=== PATIENT | female | born 1960 | race Caucasian/White ===

== ENCOUNTER → 2017-10-25 00:50 | Outpatient (CLI) | payer OTHER, SELFPAY ==
--- NOTE | 2017-10-25 08:01 | DI.REPORT_ITS ---
SYMPTOM/DIAGNOSIS: F/U THYROID NODULE, E04.1 THYROID ULTRASOUND: The right thyroid lobe measures 4.9 by 2.7 by 2.9 cm. and contains a 4.6 by 2.5 by 2.5 solid nodule with color flow. There is a 9 by 4 by 7 mm. nodule in the isthmus. The left thyroid measures 3.8 by 1.0 by 1.3 cm. In the upper pole, there is a 6 by 3 by 4 mm. nodule. In the mid pole, there is a 7 by 4 by 9 mm. nodule and a 5 by 3 by 4 mm. nodule. SUMMARY: A multi nodular thyroid gland is demonstrated. There is a 4.6 by 2.5 by 2.5 cm. nodule involving the right thyroid lobe as described above. This patient has apparently had two biopsies of this nodule, both of which revealed no evidence of malignancy, this nodule little changed by ultrasound when compared with the previous examination of 09/14/16.
== END ==
PROVIDERS: PCP Family Medicine; Visit Provider Otolaryngology
DX: E04.1 Nontoxic single thyroid nodule (principal)
CPT/HCPCS: 76536

== ENCOUNTER 2017-11-22 12:49 | Outpatient (REF) | payer OTHER, SELFPAY ==
--- NOTE | 2017-11-22 11:00 | PAPFT_PTH ---
PATIENT: Nathalie Rodriguez LOC: [facility] U#:[id number] AGE/SX: 57/F ROOM: RE11/22/[address]: JAMES Cadet : 1960 BED: DIS: 11/22/2017 SPEC #: [id number] RECD: 11/22/17 13:15 STATUS: LEONIDES REJolene #: [id number] LASHONDA: 11/22/17 11:[address]: Wanda Johnston DEPT: [facility] Cytology RECD BY: Mony Jerry ENTERED: 11/22/17 13:16 SP TYPE: PAPFT OTHR DR: Vy Weiss MD, DC Tissues: 1 - CX/ENDOCX FOR PAP SMEARS Procedures: PAP THIN PREP/UVM Screening HPV DNA PROBE Comments: [id number]
== END 2017-11-22 13:09 ==
LOC: LBN 12:49
PROVIDERS: PCP Family Medicine; Visit Provider Nurse Practitioner Family
DX: Z12.4 Encounter for screening for malignant neoplasm of cervix (principal); Z11.51 Encounter for screening for human papillomavirus (HPV)
CPT/HCPCS: 88142; 87624

== ENCOUNTER 2018-04-16 15:43 | Outpatient (CLI) | payer OTHER, SELFPAY ==
[2018-04-16 17:09] LABS: ALT 26 U/L (12-78); AST 16 U/L (15-37); Albumin 3.7 g/dL (3.4-5.0); Alkaline Phosphatase 69 U/L (46-116); Anion Gap 8.1 mmol/L (3-11); BUN 14 mg/dL (7-18); Bilirubin, Total 0.3 mg/dL (0.2-1.0); CO2 28.9 mmol/L (21.0-32.0); CREATININE 0.85 mg/dL (0.55-1.02); Calcium 9.7 mg/dL (8.5-10.1); Chloride 103 mmol/L (98-107); Cholesterol 191 mg/dL (50-200); GGT 24 U/L (5-55); Glucose 92 mg/dL (70-100); HDL Cholesterol 66 mg/dL (40-60); LDL CHOLESTEROL 105 mg/dL (<100); Sodium 140 mmol/L (136-145); TSH (W/Ref FT4) 1.03 uIU/mL (0.358-3.74); Total Protein 7.2 g/dL (6.4-8.2); Triglyceride 100 mg/dL (30-150)
[2018-04-16 17:22] LABS: HCT 40.4 % (36.0-46.0); HGB 13.5 g/dL (12.0-15.5); Mean Corp. HGB Concentration 33.4 g/dL (32.0-36.0); Mean Corpuscular Volume 89.8 fL (80-95); Mean Platelet Volume 10.2 fL (8.0-11.0); Platelet Count 283 x1000/uL (130-400); RBC Distribution Width 12.2 % (11.7-14.6)
[2018-04-16 20:09] LABS: ESR 16 MM/HR (0-30)
[2018-04-18 11:18] LABS: HIV-1/2 Ag & Ab Screen Negative (NEGAT); Hepatitis B Surface Ag Negative (NEGAT)
[2018-04-18 11:30] LABS: Hepatitis C Ab w Rflx HCV PCR Negative (NEGAT)
[2018-04-18 11:49] LABS: Syphilis Serology (RPR) Negative (Negative)
== END 2018-04-16 16:03 ==
PROVIDERS: Nurse Practitioner Family; PCP Family Medicine; Visit Provider Family Medicine
DX: Z00.00 Encounter for general adult medical examination without abnormal findings (principal); Z87.2 Personal history of diseases of the skin and subcutaneous tissue; Z11.3 Encounter for screening for infections with a predominantly sexual mode of transmission; Z11.59 Encounter for screening for other viral diseases; Z01.84 Encounter for antibody response examination; Z11.4 Encounter for screening for human immunodeficiency virus [HIV]
CPT/HCPCS: 36415; 80053; 80061; 83721; 85027; 85652; 86803; 87340; 87389; 82977; 84443; 86592

== ENCOUNTER 2018-10-03 00:42 | Outpatient (CLI) | payer OTHER, SELFPAY ==
--- NOTE | 2018-10-03 13:07 | DI.US_ITS ---
SYMPTOMS/DIAGNOSIS: RIGHT THYROID NODULE, E04.1 THYROID ULTRASOUND: Thyroid ultrasound was performed according to the usual protocol. Right thyroid lobe measures 52 x 23 x 28 mm and left thyroid lobe measures 44 x 11 x 14 mm. There is a previously described dominant mass of the right thyroid lobe; on today's examination, this measures 44 x 22 x 24 mm in diameter compared to 46 x 25 x 25 mm on the previous examination of 10/25/2017. The remainder of the thyroid parenchyma is heterogeneous and contains multiple nodules, the largest about 7 mm in diameter in the mid pole of the left thyroid lobe. CONCLUSION: No gross interval change in appearance of the dominant right lobe thyroid mass, which measures 44 x 22 x 24 mm on today's examination. The findings are indeterminate for malignancy, but with the lack of growth, the findings are consistent with benign disease.
== END 2018-10-03 01:02 ==
PROVIDERS: PCP Family Medicine; Visit Provider Otolaryngology
DX: E04.1 Nontoxic single thyroid nodule (principal); E07.89 Other specified disorders of thyroid
CPT/HCPCS: 76536

== ENCOUNTER 2018-12-13 17:53 | Outpatient (REF) | payer OTHER, SELFPAY ==
--- NOTE | 2018-12-13 15:15 | PAPFT_PTH ---
PATIENT: Nathalie Rodriguez LOC: [facility] U#:[id number] AGE/SX: 58/F ROOM: RE12/13/[address]: JAMES Cadet : 1960 BED: DIS: 12/13/2018 SPEC #: [id number] RECD: 12/13/18 18:03 STATUS: LEONIDES REQ #: [id number] LASHONDA: 12/13/18 15:[address]: Wanda Johnston DEPT: [facility] Cytology RECD BY: Mony Jerry ENTERED: 12/13/18 18:04 SP TYPE: PAPFT ROXY DR: Vy Weiss MD, DC Tissues: 1 - CX/ENDOCX FOR PAP SMEARS Procedures: PAP THIN PREP/UVM Screening HPV DNA PROBE Comments: [id number]
== END 2018-12-13 18:13 ==
LOC: LBN 17:53
PROVIDERS: PCP Family Medicine; Visit Provider Nurse Practitioner Family
DX: Z12.4 Encounter for screening for malignant neoplasm of cervix (principal); Z11.51 Encounter for screening for human papillomavirus (HPV)
CPT/HCPCS: 88142; 87624

== ENCOUNTER 2021-03-23 23:54 | Emergency (ER) | payer OTHER, SELFPAY ==
[2021-03-23 23:59] VITALS: BP 130/81; PULSE 74; RESP 18; TEMP 36.4; O2SAT 98
--- NOTE | 2021-03-24 00:10 | ED.GENADUL_ITS ---
Discharge Plan Disposition Patient Disposition: HOME Condition: Good Discharge Details Clinical Impression: Epigastric abdominal pain, UTI (urinary tract infection) Primary Care Provider: Vy Weiss ED Provider: Saw Matta [place] Meds and New Rx's Prescriptions: New omeprazole 40 mg capsule,delayed release(DR/EC) 40 mg PO DAILY Qty: 30 RF: 0 sucralfate [Carafate] 1 gram tablet 1 g PO QACHS Qty: 40 RF: 0 Continued MSM 1,000 mg capsule 1,000 mg PO DAILY RF: 0 Restasis 1 EACH dropperette 1 drp Ophthalmic Q12H PRN RF: 0 Discharge Instructions Instructions: Urinary Tract Infection in Women (ED), Epigastric Pain (ED) Additional Instructions: Labs all look fine except for urine which looks infected. Given the symptoms you had last week will treat as we discussed. Suspect the epigastric pain is more likely acid related and will start you on medications for that. Follow up with PCP next week. Return to ED if fever, worse/new pain, persistent vomiting. Referrals: Vy Weiss MD, [place] [Primary Care Provider] - Discharge Data Discharge Date/Time-TO BE ENTERED AT DEPARTURE: 03/24/21 01:38 Medical Decision Making Patient presenting to the ED with complaint of epigastric abdominal pain and nausea. Occasional radiation to the chest. Does feel the pain to her back. No fever. No actual vomiting. Urinary symptoms last week but not really any to speak of now. She is afebrile here. Her vital signs are normal. Her abdominal exam reveals some mild tenderness in the epigastric area only. There is no guarding or rebound. There is no right upper quadrant tenderness. There is no CVAT. Differential includes acid related disease, liver disease, pancreatitis, cholecystitis though unlikely given lack of findings in the right upper quadrant. IV established and laboratory studies obtained. EKG ordered. Zofran, Pepcid, Carafate given. EKG is unremarkable with no acute ST changes noted. Laboratory studies also u nremarkable with normal white count, hemoglobin, chemistries, liver function, lipase, troponin. Urinalysis dips positive for nitrate and has 5-10 white cells with many bacteria on micro. Given urinary symptoms last week would treat but doubt this has anything to do with the epigastric pain. She does not have CVAT and describes the pain as straight to the from the epigastric area so doubt pyelo. After discussion with patient will treat with fosfomycin. In regards to the epigastric pain and nausea, she does report relief though not resolution of symptoms after medications. She has a prior history of GERD but currently is on no medications. We will start PPI and Carafate. Refer to primary care for follow-up next week for recheck. Return to ED for new or worsening pain, fever, vomiting, other concerns. Medical Records Medical records reviewed: Yes I reviewed the patient's medical records. Lab Data Lab results reviewed: Yes I reviewed the patient's lab results. ECG Data Attestation: I personally reviewed and interpreted this ECG (s) as follows: Prior ECG tracings: not available for review Interpretation: see EKG HPI General Mode of arrival: ambulatory . Date/Time Provider Initiated Documentation: 03/24/21 00:10 . Limitations to Documentation: no limitations . Information obtained by: patient and RN notes reviewed . HPI Narrative: Patient presents to ED with epigastric abdominal pain with radiation to the back that began this afternoon. It has become worse over time. Occasionally some radiation to the chest. No shortness of breath. Nausea but no vomiting. Soft stool but no diarrhea. Reports urinary symptoms last week which seemed to have resolved except for urgency. No lower abdominal pain. No fever. No previous abdominal surgeries. Related Data Home Medications Medication Instructions Recorded Confirmed Restasis 1 drp OPHTHALMIC Q12H PRN drp 01/26/14 10/14/20 methylsulfonylmethane 1,000 mg 1,000 mg PO DAILY cap 04/21/19 10/14/20 capsule omeprazole 40 mg PO DAILY #30 cap 03/24/21 sucralfate [Carafate] 1 g PO QACHS #40 tab 03/24/21 Previous Rx's Medication Instructions Recorded omeprazole 40 mg PO DAILY #30 cap 03/24/21 sucralfate [Carafate] 1 g PO QACHS #40 tab 03/24/21 Allergies Allergy/AdvReac Type Severity Reaction Status Date / Time erythromycin base AdvReac Intermediate GI UPSET Verified 10/14/20 15:07 General Stated Complaint: Abd Prob MICA: 3 Review of Systems Narrative: As documented in HPI otherwise negative as below. Const: no fever, chills, weakness Resp: no cough, SOB, pleuritic pain CV: no CP, diaphoresis, edema, syncope GI: no vomiting, diarrhea Neuro: no headache, numbness, focal weakness, confusion PFSH All Active Problems (Updated 03/24/21 @ 01:24 by Saw Matta MD) Epigastric abdominal pain (Acute) UTI (urinary tract infection) (Acute) Vertigo (Acute 03/05/17) Other specified menopausal and perimenopausal disorders (Acute) 01/17/12 Health counseling (Acute) Neck pain (Acute) Annual physical exam (Acute 04/10/17) Shoulder pain, right (Acute) Thyroid nodule (Chronic) 09/02/15 Chronic left shoulder pain (Chronic 02/12/17) 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 H. Pylori neg. Hemangioma [facility] [place]; MRI RESULTS;03/06/11;CHOROIDAL HEMANGIONA Neuropathy 03/06/16 Non-toxic nodular goiter 10/13/11 Frank Tricuspid valve insufficiency (03/10/16) MILD TO MODERATE REGURGITATION-03/13/16 Surgical History Colonoscopy - [facility] [place] (12/20/15) History of bilateral tubal ligation Hx of biopsy right thyroid Family History Mother Essential hypertension Depression Hyperlipidemia Father Essential hypertension Heart disease STENTS Hyperlipidemia Sister Cervical cancer Brother Substance abuse Maternal Grandfather No problems noted. Paternal Grandfather , age 70 Lung cancer Maternal Grandmother , age 67 Stroke Alcohol abuse Heart disease Paternal Grandmother , age 65 Heart disease Maternal Uncle Diabetes Son No problems noted. Son Depression Daughter No problems noted. Social History Smoking/Tobacco Use Status: Former Tobacco Use tobacco type: e-cigarettes Quit status: considering quitting Second Hand Exposure: Yes Smoking risk assessment performed?: Yes Alcohol Intake: current Alcohol Intake frequency: 0-2 drinks per day Alcohol type: beer and wine Drug use: Never Substance use type: does not use Caregiver/Support person: No Household members: spouse Housing: house Number of Children: 3 Communication Needs: None Do you need help understanding health information?: Never current occupation: admininstrator Pets and animals: Yes Pets and animals: dog(s) Sexually active: Yes Do you think of yourself as: straight/heterosexual Current gender identity: female What is your relationship status?: How often do you talk on the phone with friends or family?: twice per week How often do you get together with friends or relatives?: once per week How often do you attend scientologist or islam services?: decline to answer Do you belong to any clubs or organized social groups?: no Panel score (0-1 are the most socially isolated patients): 2 What type of physical activity do you participate in: bicycling and other Details: snowshoeing Duration: 15-30 minutes/day Frequency: 5-6 times per week Nelida/Synagogue: None Special nelida needs: No Seatbelt use: always Helmet use: Yes Helmet use: always Drive intox or ride w/intox mobile lounge driver: No Do you feel safe in your relationship?: Yes Exam Narrative Exam Narrative: Const: WDWN female in NAD. HEENT: NC/AT. Normal facial exam. Eyes: Normal conjunctiva and sclera. Neck: Supple. Trachea midline. Lungs: Normal respiratory effort. Lungs are clear. Cor: RRR without murmur/gallop. Good radial pulses. GI: Softand ND. Mild tenderness over the epigastric area. No RUQ tenderness. No Inman's sign. No masses. Back: No CVAT Neuro: A+O x 3. Normal speech, mentation, gait. Cranial nerves II - XII grossly intact. No gross motor or sensory deficit. Ext: No C/C/E. Skin: Warm and dry without rash. Course Vital Signs Vital signs: Vital Signs Temperature 97.5 F L 03/23/21 23:59 Pulse 74 03/23/21 23:59 Respiratory Rate 18 03/23/21 23:59 Blood Pressure 130/81 03/23/21 23:59 Pulse Oximetry 98 03/23/21 23:59 Temperature 97.5 F L 03/23/21 23:59 Temperature Source Temporal Artery Scan 03/23/21 23:59 Pulse 74 03/23/21 23:59 Respiratory Rate 18 03/23/21 23:59 Respiratory Effort 03/24/21 00:02 Blood Pressure 130/81 03/23/21 23:59 Pulse Oximetry 98 03/23/21 23:59 Oxygen Delivery Method Room Air 03/23/21 23:59 Oxygen Flow Rate 0 03/23/21 23:59 Pain Level 4 03/23/21 23:59
--- NOTE | 2021-03-24 00:15 | RT.EKG_ITS ---
APPROVED REPORT Exam: Resting ECG Reason for Exam: Patient Location: E HR:70 bpm ECG Measurements Heart Rate 70 AXIS [place] 157 P 57 QRSd 88 QRS 31 QT 411 T 48 QTc 444 Conclusion Sinus rhythm...normal P axis, V-rate 60- 99 Probable left atrial enlargement...P >50mS, <-0.10mV V1 Normal [place] I have reviewed and interpreted ECG and agree with software generated interpretation.
[2021-03-24 00:39] LABS: Abs Immature Grans 0.02 10^3/uL (0.0-0.06); Absolute Basophil Count 0.03 10^3/uL (0.0-0.2); Absolute Eosinophil Count 0.07 10^3/uL (0.0-0.7); Absolute Lymphocyte Count 1.15 10^3/uL (1.2-3.4); Absolute Monocyte Count 0.46 10^3/uL (0.1-0.8); Absolute Neutrophil Count 7.11 10^3/uL (1.2-6.7); Basophils % 0.3; Eosinophils % 0.8; HCT 38.5 % (36.0-46.0); HGB 12.6 g/dL (11.2-15.7); Immature Grans % 0.2; MCH 29.8 pg (27.0-33.0); MCHC 32.7 % (32.0-36.0); MPV 9.3 fL (8.0-11.0); Monocytes % 5.2; Neutrophils % 80.5; Nucleated RBC 0 %; Platelet Count 259 10^3/uL (130-400); RBC 4.23 10^6/uL (3.93-5.22); RDW 12.4 % (11.7-14.6); RDW-SD 41.1 fL; WBC 8.84 10^3/uL (4.4-10.8)
[2021-03-24 00:40] LABS: Bilirubin Moderate (Negative); Blood Trace-intact (Negative); Clarity Sl Cloudy (Clear); Glucose Negative (Negative); Ketones 40 mg/dL (Negative); Leukocyte Esterase Trace (Negative); Nitrite Positive (Negative); Specific Gravity >= 1.030 (1.005-1.025)
[2021-03-24 00:44] LABS: Bacteria Many HPF (Negative); C & S Indicated? Yes; Casts Negative LPF (Negative); Crystals Few Calcium Oxalate HPF (Negative); Epithelial Cells Few HPF (Negative); Mucus Negative (Negative)
[2021-03-24] MEDS: Normal Saline 1,000 ML 1000 ML IV (00:49)
[2021-03-24] MEDS: FAMOTIDINE 20 MG/50 ML BAG 100 MG IVPB (00:49)
[2021-03-24] MEDS: Ondansetron 4 MG/2 ML VIAL IVP (00:49)
[2021-03-24] MEDS: Sucralfate 1 GM TAB PO (00:49)
[2021-03-24 01:00] LABS: ALT 20 U/L (14-59); AST 18 U/L (15-37); Albumin 4.1 g/dL (3.4-5.0); Alkaline Phosphatase 63 U/L (46-116); Anion Gap 8.5 mmol/L (3-11); BUN 16 mg/dL (7-18); Bilirubin, Total 0.6 mg/dL (0.2-1.0); CO2 26.5 mmol/L (21.0-32.0); CREATININE 0.8 mg/dL (0.55-1.02); Calcium 9.4 mg/dL (8.5-10.1); Chloride 102 mmol/L (98-107); Glucose 109 mg/dL (74-106); Lipase 47 U/L (73-393); Potassium 3.9 mmol/L (3.5-5.1); Sodium 137 mmol/L (136-145); Total Protein 7.4 g/dL (6.4-8.2); Troponin I < 50 ng/L (<or=60)
[2021-03-24] MEDS: Fosfomycin Tromethamine 3 GM PACKET PO (01:37)
== END 2021-03-24 01:38 | disposition home or self-care (01) ==
PROVIDERS: Emergency Provider Emergency Medicine; PCP Family Medicine
DX: R10.13 Epigastric pain (principal); N39.0 Urinary tract infection, site not specified; B96.20 Unspecified Escherichia coli [E. coli] as the cause of diseases classified elsewhere; R11.0 Nausea; R07.9 Chest pain, unspecified
CPT/HCPCS: 80053; 83690; 87077; 93005; 96361; 96365; 96375; 99284; 81003; 81015; 84484; 85025; 87086; 87186; 93010; 99283; J2405; J3490

== ENCOUNTER 2021-03-28 08:31 | Outpatient (CLI) | payer OTHER, SELFPAY ==
--- NOTE | 2021-03-28 08:30 | RT.EKG_ITS ---
APPROVED REPORT Exam: Resting ECG Reason for Exam: ED F/u Patient Location: O HR:67 bpm ECG Measurements Heart Rate 67 AXIS [place] 158 P 3 QRSd 77 QRS 42 QT 386 T 30 QTc 408 Conclusion Sinus rhythm...normal P axis, V-rate 60- 99 Normal Electrocardiogram
== END 2021-03-28 08:32 | disposition home or self-care (01) ==
LOC: DI.CM 08:32
PROVIDERS: PCP Family Medicine; Visit Provider Family Medicine
DX: R07.9 Chest pain, unspecified (principal)
CPT/HCPCS: 93010

== ENCOUNTER 2021-03-28 14:41 | Outpatient (REF) | payer OTHER, SELFPAY ==
[2021-03-28 15:17] LABS: Abs Immature Grans 0.01 10^3/uL (0.0-0.06); Absolute Basophil Count 0.02 10^3/uL (0.0-0.2); Absolute Eosinophil Count 0.11 10^3/uL (0.0-0.7); Absolute Lymphocyte Count 1.45 10^3/uL (1.2-3.4); Absolute Monocyte Count 0.37 10^3/uL (0.1-0.8); Absolute Neutrophil Count 3.16 10^3/uL (1.2-6.7); Basophils % 0.4; Eosinophils % 2.1; HCT 42.9 % (36.0-46.0); HGB 14.1 g/dL (11.2-15.7); Immature Grans % 0.2; Lymphocytes % 28.3; MCH 29.8 pg (27.0-33.0); MCHC 32.9 % (32.0-36.0); MCV 90.7 fL (80-95); MPV 10.6 fL (8.0-11.0); Monocytes % 7.2; Neutrophils % 61.8; Nucleated RBC 0 %; Platelet Count 279 10^3/uL (130-400); RBC 4.73 10^6/uL (3.93-5.22); RDW 12.2 % (11.7-14.6); RDW-SD 40.4 fL; WBC 5.12 10^3/uL (4.4-10.8)
[2021-03-28 15:27] LABS: Bilirubin Negative (Negative); Blood Trace-intact (Negative); Clarity Clear (Clear); Glucose Negative (Negative); Ketones 40 mg/dL (Negative); Leukocyte Esterase Negative (Negative); Nitrite Negative (Negative); Specific Gravity >= 1.030 (1.005-1.025); Urobilinogen 0.2 EU/dL (Up TO 0.2)
[2021-03-28 16:10] LABS: Bacteria Negative HPF (Negative); C & S Indicated? No; Casts Negative LPF (Negative); Crystals Few Amorphous HPF (Negative); Epithelial Cells Few HPF (Negative); Mucus Moderate (Negative); Other Cells Negative (Negative); RBC 0-2 HPF (0-2)
== END 2021-03-28 14:42 | disposition home or self-care (01) ==
LOC: LBN 14:41
PROVIDERS: PCP Family Medicine; Visit Provider Family Medicine
DX: N39.0 Urinary tract infection, site not specified (principal); D72.9 Disorder of white blood cells, unspecified
CPT/HCPCS: 81003; 81015; 85025

== ENCOUNTER 2021-05-26 15:24 | Outpatient (REF) | payer OTHER, SELFPAY ==
[2021-05-26 13:20] LABS: Bilirubin Negative (Negative); Blood Negative (Negative); Clarity Clear (Clear); Glucose Negative (Negative); Ketones Negative (Negative); Leukocyte Esterase Small (Negative); Nitrite Negative (Negative); Specific Gravity 1.015 (1.005-1.025); Urobilinogen 0.2 EU/dL (Up TO 0.2)
[2021-05-26 13:39] LABS: Bacteria Few HPF (Negative); C & S Indicated? No/Sq. Contamination; Casts Negative LPF (Negative); Crystals Negative HPF (Negative); Epithelial Cells Moderate HPF (Negative); Mucus Negative (Negative); Other Cells Rare Renal (Negative); RBC Negative HPF (0-2); WBC 0-2 HPF (0-5)
== END 2021-05-26 15:25 | disposition home or self-care (01) ==
LOC: LBN 15:24
PROVIDERS: PCP Family Medicine; Visit Provider Family Medicine
DX: R31.9 Hematuria, unspecified (principal)
CPT/HCPCS: 81003; 81015

== ENCOUNTER → 2021-08-08 02:30 | Outpatient (CLI) | payer OTHER, SELFPAY ==
--- NOTE | 2021-08-08 09:01 | DI.MAMMO_ITS ---
Exam(s) MAMMO SCREENING EXAM: MAMMO SCREENING CLINICAL HISTORY: screening,Z12.39 TECHNIQUE: Mammograms were interpreted according to the usual protocol including computer analysis w [employer] CAD system, tomosynthesis and C-view imaging. COMPARISON: 2011 through 2017 FINDINGS: The breasts are composed of scattered fibroglandular densities, Breast Density category B. No suspicious masses or suspicious microcalcifications are seen. No skin thickening or abnormal axillary lymph nodes are seen. There has been no significant change from prior exams. IMPRESSION: BI-RADS Category 1, Negative mammogram Yearly screening mammography is recommended. Breast Density - Category B, scattered fibroglandular densities. A negative radiographic report should not delay biopsy if a dominant or clinically suspicious mass is present. Up to ten percent of cancers are not identified on mammography. A negative report may reinforce clinical impression. Adenosis and dense breasts may obscure an underlying neoplasm. False positive reports average 6 to 10%. Patient will receive a letter notifying them of these results.
== END ==
PROVIDERS: PCP Family Medicine; Visit Provider Family Medicine
DX: Z12.31 Encounter for screening mammogram for malignant neoplasm of breast (principal)
CPT/HCPCS: 77063; 77067

== ENCOUNTER 2022-03-07 17:44 | Outpatient (REF) | payer OTHER, SELFPAY | END 2022-03-07 17:45 | disposition home or self-care (01) | LOC: LBN 17:44 | PROVIDERS: PCP Family Medicine; Visit Provider Nurse Practitioner Family | DX: R35.0 Frequency of micturition (principal) | CPT/HCPCS: 87086 ==

== ENCOUNTER 2022-06-01 14:43 | Outpatient (CLI) | payer OTHER, SELFPAY ==
--- NOTE | 2022-06-01 14:30 | RT.EKG_ITS ---
APPROVED REPORT Exam: Resting ECG Reason for Exam: palpacations Patient Location: O HR:61 bpm ECG Measurements Heart Rate 61 AXIS ME 161 P 50 QRSd 86 QRS 13 QT 428 T 38 QTc 431 Conclusion Sinus rhythm...normal P axis, V-rate 50- 99 Normal Electrocardiogram
== END 2022-06-01 14:44 | disposition home or self-care (01) ==
LOC: DI.CM 14:44
PROVIDERS: PCP Family Medicine; Visit Provider Family Medicine
DX: R00.2 Palpitations (principal)
CPT/HCPCS: 93010

== ENCOUNTER 2022-06-23 13:57 | Outpatient (RCR) | payer OTHER, SELFPAY ==
--- NOTE | 2022-06-23 13:45 | HOLTER_ITS ---
APPROVED REPORT Conclusion This is a 48-hour Holter monitor ordered for palpitations Rhythm throughout is sinus with an average heart rate of 65. Minimum was 48, maximum 103 There were very rare isolated atrial and ventricular ectopic beats There was one run of supraventricular tachycardia, 15 beats in duration, rate 150, asymptomatic There was no atrial fibrillation, no high-grade AV block, no pauses greater than 3 seconds No patient symptoms were reported
== END 2022-06-25 23:59 | disposition home or self-care (01) ==
LOC: CARDOPNVT 13:57
PROVIDERS: PCP Family Medicine; Visit Provider Family Medicine
DX: R00.2 Palpitations (principal); I47.1 Supraventricular tachycardia
CPT/HCPCS: 93225

== ENCOUNTER 2022-06-30 07:00 | Outpatient (RCR) | payer OTHER, SELFPAY | END 2022-06-30 07:20 | LOC: CARDOPNVT 07:00 | PROVIDERS: PCP Family Medicine; Visit Provider Family Medicine | DX: R00.2 Palpitations (principal); I47.1 Supraventricular tachycardia | CPT/HCPCS: 93226 ==

== ENCOUNTER 2022-11-23 13:24 | Outpatient (CLI) | payer OTHER, SELFPAY ==
[2022-11-23 13:35] LABS: Abs Immature Grans 0.02 10^3/uL (0.0-0.06); Absolute Basophil Count 0.02 10^3/uL (0.0-0.2); Absolute Eosinophil Count 0.12 10^3/uL (0.0-0.7); Absolute Lymphocyte Count 2.07 10^3/uL (1.2-3.4); Absolute Monocyte Count 0.48 10^3/uL (0.1-0.8); Absolute Neutrophil Count 3.74 10^3/uL (1.2-6.7); Basophils % 0.3; Eosinophils % 1.9; HCT 40.1 % (36.0-46.0); HGB 13.7 g/dL (11.2-15.7); Immature Grans % 0.3; Lymphocytes % 32.1; MCH 30.9 pg (27.0-33.0); MCHC 34.2 % (32.0-36.0); MCV 91 fL (80-95); MPV 9.8 fL (8.0-11.0); Monocytes % 7.4; Platelet Count 271 10^3/uL (130-400); RBC 4.43 10^6/uL (3.93-5.22); RDW 11.9 % (11.7-14.6); RDW-SD 39.8 fL; WBC 6.45 10^3/uL (4.4-10.8)
[2022-11-23 13:36] LABS: Bilirubin Negative (Negative); Blood Trace-intact (Negative); Clarity Clear (Clear); Glucose Negative (Negative); Ketones 15 mg/dL (Negative); Leukocyte Esterase Trace (Negative); Nitrite Negative (Negative); Specific Gravity 1.015 (1.005-1.025); Urobilinogen 0.2 mg/dL (Up to 0.2)
[2022-11-23 13:51] LABS: Bacteria Few HPF (Negative); C & S Indicated? No/Sq. Contamination; Casts Negative LPF (Negative); Crystals Negative HPF (Negative); Epithelial Cells Moderate HPF (Negative); Mucus Trace (Negative); RBC 0-2 HPF (0-2)
[2022-11-23 14:04] LABS: TSH (W/Ref FT4) 0.73 uIU/mL (0.36-3.74)
== END 2022-11-23 13:25 | disposition home or self-care (01) ==
LOC: LBO 13:25
PROVIDERS: Family Medicine; PCP Family Medicine; Visit Provider Family Medicine
DX: E03.9 Hypothyroidism, unspecified (principal); R10.31 Right lower quadrant pain; R30.0 Dysuria
CPT/HCPCS: 36415; 81003; 81015; 84443; 85025

== ENCOUNTER → 2022-12-07 00:44 | Outpatient (CLI) | payer OTHER, SELFPAY ==
--- NOTE | 2022-12-07 06:05 | DI.CT_ITS ---
Exam(s) CT PELVIC W EXAM: CT PELVIC W CLINICAL HISTORY: Right groin pain, abnormal ultrasound,r10.31 TECHNIQUE: Imaging Protocol: Axial computed tomography images with coronal and sagittal reformatted images were created and reviewed CONTRAST MATERIAL: Intravenous: Omnipaque 350 Contrast volume:100 mL Oral: Yes COMPARISON: US US HERNIA from 11/23/2022 FINDINGS: PELVIS: Abdominal Aorta: Abdominal portion non-dilated. Bowel: There is diverticulosis seen in the colon but no evidence of acute diverticulitis. There is n o evidence of bowel obstruction or bowel wall thickening. Appendix is unremarkable. Peritoneal Cavity: No ascites, collection or mesenteric inflammatory response. Soft Tissues: There is no evidence of an inguinal hernia. Bladder: Symmetric distention, no gross wall thickening. Reproductive Organs: Unremarkable as visualized. Lymph Nodes: Benign appearing lymph nodes are seen in the inguinal regions bilaterally. No suspiciou s inguinal masses are seen. Bones: Within normal limits. There is L5 spondylolysis without significant spondylolisthesis. IMPRESSION: 1. No evidence of an inguinal hernia or suspicious inguinal mass. 2. Unremarkable inguinal lymph nodes. RADIATION DOSE DELIVERED: Total DLP Total DLP DATA REPOSITORY: All CT scans at this facility are submitted to the National Radiology Data Registry (NRDR) Dose Index Registry (DIR) with the [employer] (ACR). RADIATION OPTIMIZATION: All CT scans at this facility use at least one of these dose optimization te chniques: automated exposure control; mA and/or kV adjustment per patient size (includes targeted exa ms where dose is matched to clinical indication); or iterative reconstruction.
[2022-12-07 12:32] LABS: CREATININE 0.8 mg/dL (0.55-1.02)
[2022-12-07] MEDS: Barium Sulfate 2% W/V-Berry Smoothie 450 ML BTL 900 ML PO (13:41)
[2022-12-07] MEDS: Omnipaque 350 MG/ML 500 ML BTL-Imaging package IJ (14:24)
== END ==
PROVIDERS: PCP Family Medicine; Visit Provider Family Medicine
DX: R10.31 Right lower quadrant pain (principal)
CPT/HCPCS: 72193; 82565

== ENCOUNTER 2023-03-26 13:04 | Outpatient (REF) | payer OTHER, SELFPAY ==
--- NOTE | 2023-03-26 11:00 | PAPFT_PTH ---
PATIENT: Nathalie Rodriguez LOC: [facility] U#:[id number] AGE/SX: 62/F ROOM: RE03/26/[address]: Vy Weiss MD, DC : 1960 BED: DIS: 03/26/2023 SPEC #: [id number] RECD: 03/26/23 13:14 STATUS: LEONIDES REJolene #: [id number] LASHONDA: 03/26/23 11:[address]: Vy Weiss DEPT: [facility] Cytology RECD BY: Mony Jerry Tissues: 1 - CX/ENDOCX FOR PAP SMEARS Procedures: PAP THIN PREP/UVM Screening HPV DNA PROBE Comments: [id number]
== END 2023-03-26 13:05 | disposition home or self-care (01) ==
LOC: LBN 13:04
PROVIDERS: PCP Family Medicine; Visit Provider Family Medicine
DX: N76.0 Acute vaginitis (principal)
CPT/HCPCS: 88142; 87480; 87510; 87624; 87660

== ENCOUNTER 2023-10-03 07:30 | Emergency (ER) | payer OTHER, SELFPAY ==
[2023-10-03] VITALS (13 sets, daily range): BP systolic 105–110; BP diastolic 55–74; PULSE 50–82; RESP 12–22; TEMP 37.2; O2SAT 94–99
--- NOTE | 2023-10-03 07:30 | RT.EKG_ITS ---
APPROVED REPORT Exam: Resting ECG Reason for Exam: dizziness Patient Location: E HR:66 bpm ECG Measurements Heart Rate 66 AXIS [place] 155 P 54 QRSd 84 QRS 12 QT 401 T 28 QTc 421 Conclusion Sinus rhythm...normal P axis, V-rate 60- 99 Physician: no stemi
[2023-10-03] MEDS: Ondansetron 4 MG/2 ML VIAL IVP (08:08)
[2023-10-03] MEDS: Lactated Ringers 1,000 ML 1000 ML IV (08:08)
[2023-10-03 08:14] LABS: Abs Immature Grans 0.03 10^3/uL (0.0-0.06); Absolute Basophil Count 0.02 10^3/uL (0.0-0.2); Absolute Eosinophil Count 0.05 10^3/uL (0.0-0.7); Absolute Lymphocyte Count 0.41 10^3/uL (1.2-3.4); Absolute Monocyte Count 0.23 10^3/uL (0.1-0.8); Absolute Neutrophil Count 6.32 10^3/uL (1.2-6.7); Basophils % 0.3 %; Eosinophils % 0.7 %; HCT 42.3 % (36.0-46.0); HGB 14.3 g/dL (11.2-15.7); Immature Grans % 0.4 %; Lymphocytes % 5.8 %; MCH 30.9 pg (27.0-33.0); MCHC 33.8 % (32.0-36.0); MCV 91 fL (80-95); MPV 9.9 fL (8.0-11.0); Monocytes % 3.3 %; Neutrophils % 89.5 %; Platelet Count 226 10^3/uL (130-400); RBC 4.63 10^6/uL (3.93-5.22); RDW 12.2 % (11.7-14.6); WBC 7.06 10^3/uL (4.4-10.8)
[2023-10-03 08:29] LABS: PTT Activated 23.9 sec (23.6-32.8); Prothrombin Time 10.3 sec (9.1-11.1)
[2023-10-03 08:44] LABS: ALT 23 U/L (14-59); AST 16 U/L (15-37); Albumin 3.9 g/dL (3.4-5.0); Alkaline Phosphatase 58 U/L (46-116); Anion Gap 10.2 mmol/L (3-11); BUN 13 mg/dL (7-18); Bilirubin, Total 0.66 mg/dL (0.2-1.0); CO2 26.8 mmol/L (21.0-32.0); CREATININE 0.8 mg/dL (0.55-1.02); Calcium 9.3 mg/dL (8.5-10.1); Chloride 104 mmol/L (98-107); Estimated GFR 83.78 (mL/min/1.73m2); Glucose 113 mg/dL (74-106); Lipase 35 U/L (16-77); NT-proBNP 102 pg/mL (<300); Potassium 3.9 mmol/L (3.5-5.1); Sodium 141 mmol/L (136-145); Total Protein 7.3 g/dL (6.4-8.2); Troponin I < 50 ng/L (< or =60)
[2023-10-03 08:49] LABS: D-Dimer 2006 ng/mlFEU (<500)
--- NOTE | 2023-10-03 09:30 | W.ED.GENAD ---
Discharge Plan Disposition Patient Disposition: Home Condition: Good Discharge Details Clinical Impression: Nausea, Chest discomfort, Stomach irritation Primary Care Provider: Vy Weiss ED Provider: Shawn Reyes Home Meds and New Rx's Prescriptions: New sucralfate [Carafate] 1 gram tablet 1 g PO BID Qty: 60 0RF pantoprazole [Protonix] 40 mg tablet,delayed release (DR/EC) 40 mg PO DAILY Qty: 60 0RF No Action methylsulfonylmethane [MSM] 1,000 mg capsule 1,000 mg PO DAILY krill [id number]-[id number]-epa 300-90 (27-45) mg capsule 1 cap PO DAILY Discharge Instructions Instructions: Chest Pain, Adult ED, Gastritis ED Additional Instructions: At this time your laboratory workup is very reassuring. There is no evidence of heart attack. As we discussed together I am concerned that there may be irritation in your esophagus and your chest/stomach that is causing some of the pain. Please take the Carafate and Protonix as directed. Please avoid any spicy foods, greasy foods, tomato products, or mint. Please reduce your daily alcohol intake by 50 or more percent. Please follow-up closely with your primary care provider for further discussion of potential stress testing. If you notice any worsening of your symptoms, or any new symptoms such as vomiting, diarrhea, fever, chills, shortness of breath, chest pain, numbness, weakness, or fainting , please return immediately to the emergency department for reevaluation. Please follow up with your primary care provider as soon as possible for reassessment and reevaluation. As always, it was a pleasure participating in your medical care today. Referrals: Vy Weiss [place], [place] [Primary Care Provider] - Discharge Data Discharge Date/Time-TO BE ENTERED AT DEPARTURE: 10/03/23 11:32 HPI General Date/Time Provider Initiated Documentation: 10/03/23 07:34. HPI Narrative: 63-year-old female with a past medical history of paroxysmal positional vertigo, previous thyroid nodule, previous tobacco use who currently vapes, GERD, presents today for evaluation of chest discomfort. Patient states that this morning at around 1 or 2 AM she woke up and had some nausea vomiting and diarrhea, she felt slightly lightheaded, she felt like she might pass out. She did not syncopized. She also developed some mild left shoulder and arm discomfort during this phase. She eventually went back to bed, and when she woke up again this morning at around 7 she still had all those symptoms. She is also noted some mild shortness of breath which is atypical for her, and it is slightly worsened when she exerts herself walks up and down stairs or came to the ER. She denies any hematemesis, hematochezia or melena or acholic stool. She denies any calf pain or tenderness, history of blood clots or history of heart attack or stroke in first-degree relatives. Family history is positive for TIAs in first-degree relatives. She denies any recent long trips surgeries or procedures otherwise. She denies any cough, abdominal pain, or other complaint. Related Data Home Medications ?Medication ?Instructions ?Recorded ?Confirmed methylsulfonylmethane 1,000 mg 1,000 mg PO DAILY 04/21/19 10/03/23 capsule (MSM) krill mvn-[id number]-5-dha-epa 300 1 cap PO DAILY 03/26/23 10/03/23 mg-90 mg (27 mg-45 mg) capsule pantoprazole 40 mg tablet,delayed 40 mg PO DAILY #60 tabs 10/03/23 release (Protonix) sucralfate 1 gram tablet (Carafate) 1 g PO BID #60 tabs 10/03/23 Previous Rx's ?Medication ?Instructions ?Recorded pantoprazole 40 mg tablet,delayed 40 mg PO DAILY #60 tabs 10/03/23 release (Protonix) sucralfate 1 gram tablet (Carafate) 1 g PO BID #60 tabs 10/03/23 Allergies Allergy/AdvReac Type Severity Reaction Status Date / Time erythromycin base AdvReac Intermediate GI UPSET Verified 10/03/23 07:38 General Stated Complaint: Nausea/Vomit/Diar MICA: 3 Review of Systems All systems reviewed & are unremarkable except as noted in HPI and below Exam Narrative Exam Narrative: 1.Const: Well-nourished, Well-developed, appearing stated age 2.Eyes: PERRL, no conjunctival injection, and symmetrical lids. 3.ENT: Atraumatic external nose and ears. Moist MM. Neck: Symmetric, trachea midline, No thyromegaly. 4.CVS: +S1/S2, No murmurs or gallops. Peripheral pulses 2+ and equal in all extremities. Brisk capillary refill in all extremities. 5.RESP: Unlabored respiratory effort. Clear to auscultation bilaterally. No wheezes rales or rhonchi 6.GI: Soft, Nontender/Nondistended, No hepatosplenomegaly. No guarding or rebound. 7.MSK: Normocephalic/Atraumatic, Extremities w/o deformity or ttp No cyanosis or clubbing, Normal movement of all extremities, no calf tenderness. 8.Skin: Warm, Dry. No rashes or lesions. 9.Neuro: pot tender II-XII grossly intact. Sensation grossly intact, no focal neurologic deficits. 10.Psych: (AAO) x3. Appropriate mood and affect Course Vital Signs Vital signs: Vital Signs Temperature 37.2 C 10/03/23 07:34 Pulse 82 10/03/23 07:34 Respiratory Rate 12 10/03/23 07:34 Blood Pressure 110/74 10/03/23 07:34 Pulse Oximetry 97 10/03/23 07:34 Temperature 37.2 C 10/03/23 07:34 Temperature Source Oral 10/03/23 07:34 Pulse 82 10/03/23 07:34 Pulse 65 10/03/23 09:20 Respiratory Rate 19 10/03/23 09:20 Respiratory Effort Normal, Non-Labored 10/03/23 08:12 Blood Pressure 110/74 10/03/23 07:34 Blood Pressure Position Sitting 10/03/23 07:34 Pulse Oximetry 97 10/03/23 09:20 Oxygen Delivery Method Room Air 10/03/23 07:34 Oxygen Flow Rate 0 10/03/23 07:34 Pain Level 0 10/03/23 07:34 Lab/Test Results Lab/Test Results: Laboratory Tests Range/Units 10/03/23 07:45 WBC (4.4-10.8) 10^3/uL 7.06 RBC (3.93-5.22) 10^6/uL 4.63 Hgb (11.2-15.7) g/dL 14.3 Hct (36.0-46.0) % 42.3 MCV (80-95) fL 91 MCH (27.0-33.0) pg 30.9 MCHC (32.0-36.0) % 33.8 RDW (11.7-14.6) % 12.2 Plt Count (130-400) 10^3/uL 226 MPV (8.0-11.0) fL 9.9 Immature Gran % % 0.4 Neutrophils % % 89.5 Lymphocytes % % 5.8 Monocytes % % 3.3 Eosinophils % % 0.7 Basophils % % 0.3 Nucleated RBC % (0.0-0.3) % 0.0 Absolute Neutrophils (1.2-6.7) 10^3/uL 6.32 Absolute Lymphocytes (1.2-3.4) 10^3/uL 0.41 L Absolute Monocytes (0.1-0.8) 10^3/uL 0.23 Absolute Eosinophils (0.0-0.7) 10^3/uL 0.05 Absolute Basophils (0.0-0.2) 10^3/uL 0.02 PT (9.1-11.1) sec 10.3 INR (0.9-1.1) 1.0 APTT (23.6-32.8) sec 23.9 D-Dimer (<500) ng/mlFEU 2005 H Sodium (136-145) mmol/L 141 Potassium (3.5-5.1) mmol/L 3.9 Chloride (98-107) mmol/L 104 Carbon Dioxide (21.0-32.0) mmol/L 26.8 Anion Gap (3-11) mmol/L 10.2 BUN (7-18) mg/dL 13 Creatinine (0.55-1.02) mg/dL 0.8 Est GFR (CKD-EPI 2020) (mL/min/1.73m2) 83.78 Glucose (74-106) mg/dL 113 H Calcium (8.5-10.1) mg/dL 9.3 Total Bilirubin (0.2-1.0) mg/dL 0.66 AST (15-37) U/L 16 ALT (14-59) U/L 23 Alkaline Phosphatase (46-116) U/L 58 Troponin I (< or =60) ng/L < 50 NT-Pro-B Natriuret Pep (<300) pg/mL 102 Total Protein (6.4-8.2) g/dL 7.3 Albumin (3.4-5.0) g/dL 3.9 Lipase (16-77) U/L 35 Medical Decision Making 63-year-old female with a past medical history of paroxysmal positional vertigo, previous thyroid nodule, previous tobacco use who currently vapes, GERD, presents today for evaluation of chest discomfort. Patient states that this morning at around 1 or 2 AM she woke up and had some nausea vomiting and diarrhea, she felt slightly lightheaded, she felt like she might pass out. She did not syncopized. She also developed some mild left shoulder and arm discomfort during this phase. She eventually went back to bed, and when she woke up again this morning at around 7 she still had all those symptoms. She is also noted some mild shortness of breath which is atypical for her, and it is slightly worsened when she exerts herself walks up and down stairs or came to the ER. She denies any hematemesis, hematochezia or melena or acholic stool. She denies any calf pain or tenderness, history of blood clots or history of heart attack or stroke in first-degree relatives. Family history is positive for TIAs in first-degree relatives. She denies any recent long trips surgeries or procedures otherwise. She denies any cough, abdominal pain, or other complaint. Exam demonstrates well-appearing female, lungs are clear, no calf tenderness, radial pulses are +2 bilaterally. Differential is broad. Symptoms certainly may be secondary to atypical cardiac etiology, PE is less likely but does remain on the differential for which we will get a dimer.. EKG shows no evidence of STEMI, but she does have a Q wave in lead III. Dehydration, viral etiology is certainly on the differential as well. We will give Zofran and a GI cocktail to help with symptoms, will monitor closely and reassess. 9:35 AM Patient remains hemodynamically stable, initial troponin normal, proBNP normal suggesting no heart strain, lipase normal. D-dimer notably elevated at 2006. Will get a CTA for further assessment, and continue to monitor closely. 11:30 AM Patient's vital signs remained stable, no evidence of hemodynamic instability at this time. Repeat troponin has returned normal. Lipase normal. CTA shows no evidence of pulmonary embolism or other significant abnormality. Mild atelectasis in the dependent aspect of both lungs, but no evidence of infiltrate or pneumonia otherwise. Patient has no fever cough. Symptoms inconsistent with pneumonia. On reassessment patient feels significantly improved. Repeat neurologic exam shows no abnormalities. No symptoms to suggest stroke, dissection PE or ACS. EKGs are stable. At this time patient otherwise feels well and feels comfortable going home. She did have significant improvement of her chest symptoms after she was given GI cocktail. I suspect with the 2 white claws that she has every day this may have led to mild gastritis and potential esophagitis. Will recommend decreasing alcohol intake, will give prescription for Carafate and Protonix. Patient otherwise appears stable. I do feel that discharge is reasonable. Heart score is in the low risk category. I did discuss with the patient the importance of close follow-up with her PCP and nonemergent outpatient stress testing for further diagnostic evaluation. Patient understands this. Discussed red flags which to return. I have extensively reviewed the treatment plan and discharge instructions with the patient and their family. I have addressed all patient concerns at this time. The patient and family was made aware of what symptoms to monitor for that would warrant a return to the emergency department. Discussed the plan with the patient and family, they demonstrate verbal understanding and agreement with our assessment and plan at this time. The documentation in this chart was dictated using [employer] dictation software. Please excuse any dictation errors. FINDINGS: CHEST: PULMONARY ARTERIES: There are no intraluminal filling defects to suggest acute pulmonary emboli. LUNGS: Some ground-glass density seen in dependent aspect of both lung aguirre. Probably air trapping. No confluent infiltrates. No pleural effusions.. No significant focal findings in the trachea and mainstem bronchi. MEDIASTINUM: There is no hilar nor mediastinal adenopathy. Abnormally enlarged right thyroid lobe which measures 3.4 cm AP x 2.7 cm wide by 5.4 cm craniocaudal. Not entirely included in the field of view. The partially visualized left lobe exhibits normal size. CARDIAC: Heart size is upper normal. There is no pericardial effusion.Caliber of the thoracic aorta is within normal limits. There is no significant shift of the interventricular septum. PARTIALLY VISUALIZED UPPERMOST ABDOMEN: No obvious findings OSSEOUS: No significant osseous lesions.No fractures.. IMPRESSION: 1. No evidence of acute pulmonary emboli. No evidence of pulmonary infarction. 2. Mild increased markings in dependent aspect of both lung aguirre. No pleural effusions. 3. No intrathoracic adenopathy. Quality:SDOH Health Related Social Needs: No Data to Display [facility] All Active Problems (Updated 10/03/23 @ 11:20 by Shawn Reyes DO) Stomach irritation (Acute) Chest discomfort (Acute) Nausea (Acute) Anxiety about health (Acute) Nicotine dependence (Chronic) tob use hx 10 packyr hx; now uses vape Right groin pain (Acute) Palpitations (Acute) Hematuria (Acute) Benign paroxysmal positional vertigo of right ear (Acute) Abnormal WBC count (Acute) COVID-19 (Acute ~02/07/21) Health counseling (Acute) Neck pain (Acute) Shoulder pain, right (Acute) Other specified menopausal and perimenopausal disorders (Acute) 01/17/12 Thyroid nodule (Chronic) 09/02/15 Annual physical exam (Acute 04/10/17) Chronic left shoulder pain (Chronic 02/12/17) 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 H. Pylori neg. [place] [facility] [place]/06[place]11;CHOROIDAL HEMANGIONA Tricuspid valve insufficiency (03/10/16) MILD TO MODERATE REGURGITATION-03/13/16 Benign R thyroid nodule Surgical History History of bilateral tubal ligation Hx of biopsy right thyroid Colonoscopy - MAC (12/20/15) Family History Mother Essential hypertension Depression Hyperlipidemia Father Essential hypertension Heart disease STENTS Hyperlipidemia Sister Cervical cancer Brother Substance abuse Maternal Grandfather No problems noted. Paternal Grandfather , age 70 Lung cancer Maternal Grandmother , age 67 Stroke Alcohol abuse Heart disease Paternal Grandmother , age 65 Heart disease Maternal Uncle Diabetes Son No problems noted. Son Depression Daughter No problems noted. Social History Smoking/Tobacco Use Status: Current every day Tobacco Type: e-cigarettes Quit status: has quit before Second Hand Exposure: Yes Smoking risk assessment performed?: Yes Alcohol Intake: current Alcohol Intake frequency: 3 or more drinks per day Alcohol type: beer and wine Drug use: Never Substance use type: does not use Caregiver/Support person: No Household members: spouse Housing: house Number of Children: 3 Communication Needs: None Do you need help understanding health information?: Never current occupation: admininstrator Pets and animals: Yes Pets and animals: dog(s) Sexually active: Yes Do you think of yourself as: straight/heterosexual Current gender identity: female What is your relationship status?: How often do you talk on the phone with friends or family?: twice per week How often do you get together with friends or relatives?: once per week Do you belong to any clubs or organized social groups?: no Panel score (0-1 are the most socially isolated patients): 2 What type of physical activity do you participate in: walking and bicycling Duration: 30-45 minutes/day Frequency: 3-4 times per week Nelida/Episcopalian: None Special nelida needs: No Seatbelt use: always Helmet use: Yes Helmet use: always Drive intox or ride w/intox hammer driver: No Do you feel safe in your relationship?: Yes PAWSS Have you Been Recently Intoxicated or Drunk Within the Last 30 days?: No Have you Ever Experienced Previous Episodes of Alcohol Withdrawal?: No Have you ever Experienced Withdrawal Seizures?: No Have you ever Experienced Delirium Tremens(DT)s?: No Have you ever undergone Alcohol Rehabilitation Treatment (i.e, inpt ot outpatient treatment programs)?: No Have you ever Experienced Blackouts?: No Have you ever Combined Alcohol with other Downers within the last 90 days?: No Have you ever Combined Alcohol with any other Substance of Abuse during the last 90 days?: No Positive Blood Alcohol level on Presentation? [PCS.BAL]: No Evidence of Increased Autonomic Activity (i.e. HR>120, tremor, sweating, agitation, nausea)?: No Result: 0
[2023-10-03] MEDS: Omnipaque 350 MG/ML 100 ML BTL IJ (09:37)
[2023-10-03] MEDS: Normal Saline - Diluent 50 ML VIAL IJ (09:39)
--- NOTE | 2023-10-03 09:40 | DI.CT_ITS ---
Exam(s) CT CHEST PE CTA EXAM: CT CHEST PE CTA CLINICAL HISTORY: left chest pain, sob, HIGH dimer. TECHNIQUE: Imaging Protocol: CT angiography of the chest was performed using pulmonary embolus mary col. Multi planar reconstructions were performed. CONTRAST MATERIAL: Intravenous: Omnipaque 350 Contrast volume: 100 cc COMPARISON: No exams were available for comparison FINDINGS: CHEST: PULMONARY ARTERIES: There are no intraluminal filling defects to suggest acute pulmonary emboli. LUNGS: Some ground-glass density seen in dependent aspect of both lung aguirre. Probably air trapping . No confluent infiltrates. No pleural effusions.. No significant focal findings in the trachea an d mainstem bronchi. MEDIASTINUM: There is no hilar nor mediastinal adenopathy. Abnormally enlarged right thyroid lobe whi ch measures 3.4 cm AP x 2.7 cm wide by 5.4 cm craniocaudal. Not entirely included in the field of vi ew. The partially visualized left lobe exhibits normal size. CARDIAC: Heart size is upper normal. There is no pericardial effusion.Caliber of the thoracic aorta is within normal limits. There is no significant shift of the interventricular septum. PARTIALLY VISUALIZED UPPERMOST ABDOMEN: No obvious findings OSSEOUS: No significant osseous lesions.No fractures.. IMPRESSION: 1. No evidence of acute pulmonary emboli. No evidence of pulmonary infarction. 2. Mild increased markings in dependent aspect of both lung aguirre. No pleural effusions. 3. No intrathoracic adenopathy. Called by myself to ER physician 10/03/2023 10:02 a.m. RADIATION DOSE DELIVERED: Total DLP DATA REPOSITORY: All CT scans at this facility are submitted to the National Radiology Data Registry (NRDR) Dose Index Registry (DIR) with the [employer] (ACR). RADIATION OPTIMIZATION: All CT scans at this facility use at least one of these dose optimization te chniques: automated exposure control; mA and/or kV adjustment per patient size (includes targeted exa ms where dose is matched to clinical indication); or iterative reconstruction.
[2023-10-03 11:08] LABS: Troponin I < 50 ng/L (< or =60)
== END 2023-10-03 11:32 | disposition home or self-care (01) ==
PROVIDERS: Emergency Provider Student in an Organized Health Care Education/Training Program; PCP Family Medicine
DX: R11.2 Nausea with vomiting, unspecified (principal); R19.7 Diarrhea, unspecified; R42 Dizziness and giddiness; R07.89 Other chest pain; M25.512 Pain in left shoulder; K31.89 Other diseases of stomach and duodenum
CPT/HCPCS: 71275; 80053; 83690; 93005; 96361; 96374; 99285; 83880; 84484; 85025; 85379; 85610; 85730; 93010; 99283; J2405; J3490

== ENCOUNTER 2023-10-12 08:35 | Outpatient (CLI) | payer OTHER, SELFPAY ==
[2023-10-12 08:59] LABS: D-Dimer 1759 ng/mlFEU (<500)
== END 2023-10-12 08:36 | disposition home or self-care (01) ==
LOC: LBO 08:35
PROVIDERS: PCP Family Medicine; Visit Provider Family Medicine
DX: R79.89 Other specified abnormal findings of blood chemistry (principal)
CPT/HCPCS: 36415; 85379

== ENCOUNTER 2023-10-12 16:45 | Outpatient (REF) | payer OTHER, SELFPAY ==
[2023-10-16 12:32] LABS: Helicobacter pylori Ag, Feces Negative (Negative)
== END 2023-10-12 16:46 | disposition home or self-care (01) ==
LOC: LBN 16:45
PROVIDERS: PCP Family Medicine; Visit Provider Family Medicine
DX: R12 Heartburn (principal); R79.89 Other specified abnormal findings of blood chemistry; I07.1 Rheumatic tricuspid insufficiency; D72.810 Lymphocytopenia; K44.9 Diaphragmatic hernia without obstruction or gangrene; R07.9 Chest pain, unspecified
CPT/HCPCS: 87338

== ENCOUNTER 2023-10-22 02:21 | Outpatient (CLI) | payer OTHER, SELFPAY ==
--- NOTE | 2023-10-22 08:30 | DI.US_ITS ---
APPROVED REPORT EXAM: Comprehensive 2D, Doppler, and color-flow Echocardiogram Patient Location: Out-Patient Lens Marker: Rome Arias RDCS (AE) Indications: Tricuspid regurg Conclusion Normal left ventricular wall thickness and chamber size. Ejection fraction is 70%. Wall motion is h yperdynamic Normal right ventricular size and function Both atria are normal in size Aortic valve is trileaflet and minimally sclerotic with mild regurgitation The mitral and tricuspid valves are structurally normal There is mild mitral and tricuspid regurgitation Estimated right ventricular systolic pressure is 32 mmHg Wall motion Left Ventricle The left ventricle is normal size. The left ventricular systolic function is normal. The left ventric ular ejection fraction is within the normal range. There is normal left ventricular wall thickness. T here is normal LV segmental wall motion. There is no ventricular septal defect visualized. LVEF is 70 %. Right Ventricle The right ventricle is normal size. The right ventricular systolic function is normal. Atria The left atrium size is normal. The right atrium size is normal. The interatrial septum is intact wit h no evidence for an atrial septal defect. Aortic Valve The aortic valve is minimally sclerotic. Aortic valve is trileaflet. There is no aortic valvular sten osis. Mild aortic regurgitation. Mitral Valve The mitral valve is normal in structure. No evidence of mitral valve stenosis. Mild mitral regurgitat ion. Tricuspid Valve The tricuspid valve is normal in structure. There is no tricuspid valve stenosis. Mild tricuspid regu rgitation. The RVSP is 32.3 mmHg. Pulmonic Valve The pulmonary valve is normal in structure. There is no pulmonic valvular stenosis. There is no pulmo izabel valvular regurgitation. Great Vessels The aortic root is normal in size. The ascending aorta is normal in size. Aortic arch is normal in ca liber. IVC is normal in size and collapses >50% with inspiration. Pericardium There is no pericardial effusion. 2D Dimensions IVSD d PLAX 0.75 cm F: 0.6-1.0 Ao Root d 2.93 cm F: 2.7 - 3.3 LVPW d PLAX 0.79 cm F: 0.6 - 1.0 Ao Asc Diam d 2.89 cm F: 2.3 - 3.1 LVID d PLAX 4.77 cm F: 3.8 - 5.2 LVDs 2.90 cm F: 2.2 - 3.5 LV EF Teichholz 69.5 % FS 39.12 % LV EDV (Teich) 106.0 mL LV ESV (Teich) 32.3 mL Stroke Vol Index (Teich) 42.10 M-Mode TAPSE 3.04 cm (M/F) >1.7 Auto EF LV EDV A4C 98.4 mL LV EDV A2C 97.8 mL LV EDV BP 99.2 mL LV ESV A4C 31.6 mL LV ESV A2C 28.1 mL LV ESV BP 29.7 mL LVEF(%) A4C 67.9 % LVEF(%) A2C 71.2 % LVEF(%) BP 70.0 % LV SV A4C 66.8 ml LV SV A2C 69.7 ml LV SV BP 69.5 ml LV CO A4C 3.7 L/min LV CO A2C 3.7 L/min LV CO BP 3.7 L/min HR A4C 55.90 BPM HR A2C 53.49 BPM LV EDV Index (BP) LA Volume LA Length A4C 4.7 cm LA Length A2C 4.0 cm LA Area A4C s 13.88 cm2 LA Area A2C s 12.92 cm2 LA Vol A4C A-L 35.12 mL LA Vol A2C A-L 35.00 mL LA Vol Biplane A-L 37.6 mL LA Vol/BSA A4C A-L LA Vol/BSA A2C A-L LA Vol/BSA BP A-L 21.5 mL/m2 LA Vol A4C MOD 32.8 mL LA Vol A2C MOD 30.0 mL LA Vol BP MOD 33.2 mL RA Volume RA Area A4C 10.1 cm2 RA ESV A4C (A-L) 18.9mL RA Vol/BSA A4C A-L RA Length A4C 4.6 cm RA ESV A4C (MOD) 18.5mL Aortic Valve AoV Vmax 1.65 m/s LVOT Vmax 1.37 m/s AoV Peak Grad 52.5 mmHg LVOT Peak Grad 7.5 mmHg AoV Area (Vmax) 1.72 cm2 LVOT VTI 0.324 m AoV VTI 0.428 m LVOT Mean Grad 3.7 mmHg AoV Mean Celso. 1.12 m/s LVOT SV 67.52 mL AoV Mean Grad 5.8 mmHg LVOT Diam s 1.60 cm AoV Area (VTI) 1.58 cm2 AV Regurg Peak Gr. 10.96 mmHg Velocity Ratio 0.83 AR Decel Bland 1.9m/sec2 AR DT 2566 msec AR PHT 744 msec AR Vmax 4.85 m/s Pulmonary Valve PV Vmax 0.81 (0.5-1.5 m/s) RVOT Vmax 0.72 m/s PV Peak Grad 2.6 mmHg RVOT Peak Gr. 2.1 mmHg PV Mean Celso 0.62 m/s RVOT VTI 0.179 m PV Mean Grad 1.7 mmHg RVOT Mean Gr. 1.0 mmHg Tricuspid Valve RA Pressure 3.00 mmHg TR Vmax 2.71 m/s TR Peak Grad 29.2 mmHg RVSP (TR) 32.3 mmHg
--- NOTE | 2023-10-22 10:33 | DI.RAD_ITS ---
Exam(s) RF BARIUM SWALLOW EXAM: RF BARIUM SWALLOW CLINICAL HISTORY: hiatal hernia,K44.9 TECHNIQUE: 2D and realtime digital imaging was performed. CONTRAST MATERIAL: Oral barium Oral water soluble contrast was administered. COMPARISON: No exams were available for comparison FINDINGS: This esophagram was performed standing and ASENCIO recumbent. Swallowing mechanism appears intact. No aspiration. No hypertense upper esophageal sphincter demons trated and no evidence of Zenker's diverticulum. There are no fixed lesions evident in the esophagus although there are inconsistent tertiary waves demonstrated. There is also a small diverticulum not ed approximately 6 cm above the GE junction. This appears to be on the lateral wall. No evidence of hiatal hernia. No evidence of achalasia. No obvious reflux demonstrated during this exam. No Schatzki ring demonstrated.. Diameter of the esophagus is upper normal. IMPRESSION: 1. There is a small diverticulum in the distal esophagus approximately 6 cm above the GE junction. 2. No evidence of hiatal hernia, as per request. No evidence of Schatzki ring. 3. Some tertiary waves were demonstrated in the esophagus. No evidence of achalasia. RADIATION DOSE DELIVERED: rodolfo Hobson=23.4 mGy
[2023-10-22] MEDS: Barium Sulfate 98% W/W 140 ML BTL PO (10:35)
[2023-10-22] MEDS: Simethicone/Sod Bicarb/Cit Ac, 4 gram PACKET 1 PACKET PO (10:35)
[2023-10-22] MEDS: Barium Sulfate 60% W/V 355 ML BTL PO (10:36)
== END 2023-10-22 02:41 ==
LOC: DI 02:22
PROVIDERS: PCP Family Medicine; Visit Provider Family Medicine
DX: I07.1 Rheumatic tricuspid insufficiency (principal); K44.9 Diaphragmatic hernia without obstruction or gangrene
CPT/HCPCS: 74221; 93306; J3490

== ENCOUNTER 2023-10-23 01:07 | Outpatient (CLI) | payer OTHER, SELFPAY ==
--- NOTE | 2023-10-23 10:00 | ETT_ITS ---
APPROVED REPORT Exam: Exercise Treadmill Patient Location: Out-Patient Room/Bed: Stress Nurse: Nathalia Herrera RN Ordering Provider:ARNAUD ALLRED, Contact Number: [phone] BMI: 23.88 Baseline Rhythm: Sinus bradycardia Indications: Chest Pain Medical History Medical History: Anxiety, Tricuspid valve insufficiency, heartburn, nicotine dependence/use, paroxysm al positional vertigo, palpitaitons, SVT, chronic left shoulder pain Cardiac Medications: Protonix and Carafate Allergies: Erythromycin base Cardiac Risk Factors: +family history, current tobacco vaping Previous Cardiac Procedures: None Pretest Chest Pain Characteristics: None Exercise History: Physically active Physical Disabilities: None Lung Sounds: LCTA Heart Sounds: Regular, S1/S2 Stress Test Details Test: Exercise stress testing was performed using a Boni protocol. Rest Stress HR Resting HR Supine: 56 bpm Max Heart Rate (APMHR): 159 bpm Resting HR Standin bpm Target HR (85% APMHR): 135 bpm Max HR Achieved: 158 bpm % of APMHR: 99 Recovery HR: 77 bpm HR response to stress: Normal HR response to stress BP Resting BP Supine: 142/82 mmHg Resting BP Standin/78 mmHg Max BP: 152/68 mmHg Recovery BP: 124/68 mmHg BP response to stress: Normal blood pressure response to stress. ECG Resting ECG: Sinus Bradycardia Ectopy: None Stress ECG: Sinus Tachycardia ST Change: No significant ST segment changes noted Arrhythmia: None Recovery ECG: Sinus Rhythm Recovery ST Change: , No significant ST segment changes noted Recovery Arrhythmia: Rare PAC's Clinical Reason for Termination: Max THR achieved Stress Symptoms: None Exercise duration: 10 min19 sec Highest Stage Reached: Stage 4: 4.2 mph at 16% grade. Exercise capacity: 12.35 METs Angina Score: None Wilkerson Treadmill Score: 5.0 Rate Pressure Product: [id number] Stress ECG Conclusion 1. Resting electrocardiogram was normal 2. Patient exercised on the Boni protocol and completed a workload of 12.35 METS 3. Normal heart rate and blood pressure response to exercise. The patient achieved 99% of predicted heart rate for age 4. There was no electrocardiographic evidence of myocardial ischemia 5. There were no significant dysrhythmias Wilkerson Treadmill Score is 5.0 which is Low risk. Stress Test Summary STAGE Time (mins) Speed (mph) Grade (%) HR BP SpO2 SYMPTOMS METS Supine 56 142/82 Standing 67 120/78 1 3 1.7 10 92 132/68 4.5 2 6 2.5 12 117 140/78 7 3 9 3.4 14 143 10 1 min recovery 138 134/76 3 min recovery 81 152/68 6 min recovery 77 124/68 Patient was pleasant and cooperative with exam. Left stress testing area ambulatory and in no apparen t distress.
== END 2023-10-23 01:27 ==
PROVIDERS: PCP Family Medicine; Visit Provider Family Medicine
DX: R07.9 Chest pain, unspecified (principal)
CPT/HCPCS: 93017

== ENCOUNTER 2023-11-28 01:02 | Outpatient (CLI) | payer OTHER, SELFPAY ==
--- NOTE | 2023-11-28 07:30 | DI.MAMMO_ITS ---
Exam(s) MAMMO SCREENING EXAM: MAMMO SCREENING CLINICAL HISTORY: screening,z12.39 TECHNIQUE: Mammograms were interpreted according to the usual protocol including computer analysis w [employer] CAD system, tomosynthesis and C-view imaging. COMPARISON: No exams were available for comparison FINDINGS: The breasts are composed of scattered fibroglandular densities, Breast Density category B. No suspicious masses or suspicious microcalcifications are seen. No skin thickening or abnormal axillary lymph nodes are seen. There has been no significant change from prior exams. IMPRESSION: BI-RADS Category 1, Negative mammogram Yearly screening mammography is recommended. Breast Density - Category B, scattered fibroglandular densities. A negative radiographic report should not delay biopsy if a dominant or clinically suspicious mass is present. Up to ten percent of cancers are not identified on mammography. A negative report may reinforce clinical impression. Adenosis and dense breasts may obscure an underlying neoplasm. False positive reports average 6 to 10%. Patient will receive a letter notifying them of these results.
== END 2023-11-28 01:22 ==
PROVIDERS: PCP Family Medicine; Visit Provider Family Medicine
DX: Z12.31 Encounter for screening mammogram for malignant neoplasm of breast (principal)
CPT/HCPCS: 77063; 77067

== ENCOUNTER 2023-11-28 02:22 | Outpatient (CLI) | payer OTHER, SELFPAY ==
[2023-11-28 14:07] LABS: Abs Immature Grans 0.02 10^3/uL (0.0-0.06); Absolute Basophil Count 0.03 10^3/uL (0.0-0.2); Absolute Eosinophil Count 0.19 10^3/uL (0.0-0.7); Absolute Lymphocyte Count 2.06 10^3/uL (1.2-3.4); Absolute Monocyte Count 0.49 10^3/uL (0.1-0.8); Absolute Neutrophil Count 2.84 10^3/uL (1.2-6.7); Basophils % 0.5 %; Eosinophils % 3.4 %; HCT 37.3 % (36.0-46.0); HGB 12.1 g/dL (11.2-15.7); Immature Grans % 0.4 %; Lymphocytes % 36.6 %; MCH 30.1 pg (27.0-33.0); MCHC 32.4 % (32.0-36.0); MCV 93 fL (80-95); MPV 9.6 fL (8.0-11.0); Monocytes % 8.7 %; Neutrophils % 50.4 %; Platelet Count 237 10^3/uL (130-400); RBC 4.02 10^6/uL (3.93-5.22); RDW 12.2 % (11.7-14.6); RDW-SD 41.6 fL; WBC 5.63 10^3/uL (4.4-10.8)
== END 2023-11-28 02:23 | disposition home or self-care (01) ==
PROVIDERS: PCP Family Medicine; Visit Provider Family Medicine
DX: D72.810 Lymphocytopenia (principal)
CPT/HCPCS: 36415; 85025